=== PATIENT | male | born 1960 | race African-American/Black ===

== ENCOUNTER 2024-11-10 09:19 | Emergency (ER) | payer SELFPAY ==
[~2024-11-10] VITALS: Ht 175.3 cm; Wt 76.0 kg
[2024-11-10 09:22] VITALS: BP 133/81; PULSE 64; RESP 16; TEMP 37.2; O2SAT 99
[2024-11-10 10:25] VITALS: TEMP 98.9
[2024-11-10] MEDS: ACETAMINOPHEN 325MG TABLET PO ONE (10:25)
== END 2024-11-10 10:30 | disposition left against medical advice (07) ==
LOC: ER 09:19 → CANBEDREQ 10:29 → ER 10:30
DX: R53.1 Weakness (principal); W19.XXXA Unspecified fall, initial encounter; Y93.89 Activity, other specified; Y92.89 Other specified places as the place of occurrence of the external cause; Y99.8 Other external cause status
CPT/HCPCS: 99283